=== PATIENT | male | born 1965 | race African-American/Black ===

== ENCOUNTER 2018-03-09 18:55 | Emergency (ER) | payer MEDICAID, OTHER ==
[~2018-03-09] VITALS: Ht 167.6 cm; Wt 59.0 kg
[~2018-03-09 18:55] MED LIST: ASPI-1152 PO; BENA20TA9 PO; BLOO-367 VI; CARV3.12 PO; INSU100V28 SQ; INSU100V7 SQ; SIMV20TA2 PO
--- NOTE | 2018-03-09 20:35 | NUR ---
PT STATES "MY BG WAS 600G/DL AND I TOOK 5 UNITS REG INSULIN AT 1900 AND RECHECKED IT WAS 300G/DL; BEEN SICK FOR 3 DAYS WITH FLU/VOMITING AND NOT EATING" PT ON MONITOR IN BED 5. WILL CONTINUE TO MONITOR.
[2018-03-09] MEDS ORDERED: IV NS 0.9% 1,000 ML BAG IV ONE ×2 (21:00→22:00)
--- NOTE | 2018-03-09 21:10 | NUR ---
TECH AT BEDSIDE FOR EKG
[2018-03-09 21:22] LABS: BASOPHILS # (AUTO) 0.1 /CMM (0.0-0.2); BASOPHILS % (AUTO) 0.5 % (0.0-2.0); EOSINOPHILS % (AUTO) 0.2 % (0.0-6.0); HEMATOCRIT 37 % (39-51); HEMOGLOBIN 12.7 g/dL (13.5-17.5); LYMPHOCYTES # (AUTO) 1.9 /CMM (0.8-4.8); LYMPHOCYTES % (AUTO) 17.9 % (20.0-44.0); MEAN CORPUSCULAR HGB CONC 34 g/dl (31.0-36.0); MEAN CORPUSCULAR VOLUME 90 fL (80-96); MONOCYTES % (AUTO) 9.8 % (2.0-12.0); NEUTROPHILS # (AUTO) 7.4 /CMM (1.8-8.9); NEUTROPHILS % (AUTO) 71.6 % (43.0-81.0); PLATELET COUNT (AUTO) 170 /CMM (150-450); RED BLOOD CELL COUNT(AUTO) 4.14 MIL/uL (4.5-6.0); WHITE BLOOD COUNT (AUTO) 10.3 K/uL (4.3-11.0)
[2018-03-09 21:30] LABS: CALCIUM, SERUM 8.4 mg/dL (8.5-10.1); CREATININE 1.9 mg/dL (0.6-1.3)
[2018-03-09 21:36] LABS: ALBUMIN 3.4 g/dL (3.4-5.0); BILIRUBIN,DIRECT 0.1 mg/dL (0.0-0.2); BILIRUBIN,TOTAL 0.5 mg/dL (0.2-1.0); TOTAL PROTEIN, SERUM 7.4 g/dL (6.4-8.2)
--- NOTE | 2018-03-09 21:45 | NUR ---
URINE COLLECTED AND SENT TO LAB
[2018-03-09 21:57] LABS: APPEARANCE,URINE SL CLOUDY (CLEAR); BILIRUBIN,URINE NEGATIVE (NEGATIVE); BLOOD, URINE 2+ Ery/uL (NEGATIVE); COLOR,URINE YELLOW (YELLOW); KETONES,URINE TRACE (NEGATIVE); LEUKOCYTE ESTERASE ,URINE NEGATIVE (NEGATIVE); NITRITE, URINE NEGATIVE (NEGATIVE); PROTEIN,URINE 2+ mg/dl (NEGATIVE); UGLUCOSE 3+ mg/dL (NEGATIVE); UROBILINOGEN,URINE 0.2 EU/dL (0.2)
[2018-03-09] MEDS ORDERED: POTASSIUM CHLORIDE 20 MEQ TAB.PRT.SR PO ONE ×2 (22:00→22:08)
[2018-03-09] MEDS ORDERED: POTASSIUM CL. PREMIX PERIPHER. 50 ML ONE ×2 (22:08→23:19)
[2018-03-09 22:12] LABS: BACTERIA,URINE Few /HPF (None Seen); SQUAMOUS EPITHELIAL CELL,UR Rare /HPF (None Seen)
[2018-03-09] MEDS: POTASSIUM CL. PREMIX PERIPHER. 50 ML IV SCH ×2 (22:42→23:42)
--- NOTE | 2018-03-10 00:20 | NUR ---
Patient is resting comfortably in bed with FAMILY AND DOG AT BEDSIDE. VSS. WILL CONTINUE TO MONITOR.
[2018-03-10 00:31] LABS: CREATININE 1.7 mg/dL (0.6-1.3); POTASSIUM 3.4 mmol/L (3.5-5.1)
[2018-03-10] MEDS: POTASSIUM CL. PREMIX PERIPHER. 50 ML IV SCH (00:43)
--- NOTE | 2018-03-10 01:17 | NUR ---
IV removed. Catheter intact and site benign. Pressure and 4x4 applied to site. No bleeding noted.Patient discharged to home in stable condition. Written and verbal after care instructions given. Patient verbalizes understanding of instruction.
[2018-03-10 01:18] VITALS: BP 122/84
== END 2018-03-10 01:19 | disposition home or self-care (01) ==
LOC: ER 19:01
DX: E11.65 Type 2 diabetes mellitus with hyperglycemia (principal); E87.6 Hypokalemia; I10 Essential (primary) hypertension; F17.200 Nicotine dependence, unspecified, uncomplicated; F12.10 Cannabis abuse, uncomplicated; Z60.2 Problems related to living alone; Z79.82 Long term (current) use of aspirin; Z95.1 Presence of aortocoronary bypass graft; Z98.890 Other specified postprocedural states; Z79.4 Long term (current) use of insulin
CPT/HCPCS: 36415 ×2; 80048 ×2; 80076; 81001; 82010; 82962; 85025; 87077; 87086; 87186; 93005; 96361; 96365; 96367; 99284; A4606; J3480 ×2; J7030 ×2; Z7610; 81000-TC

== ENCOUNTER 2019-05-14 17:50 | Emergency (ER) | payer MEDICAID, OTHER ==
[~2019-05-14] VITALS: Ht 170.2 cm; Wt 77.1 kg
--- NOTE | 2019-05-14 17:50 | NUR ---
called to triage, no answer
[2019-05-14 18:30] VITALS: BP 154/98
== END 2019-05-14 19:23 | disposition home or self-care (01) ==
LOC: ER 17:51
DX: S46.092A Other injury of muscle(s) and tendon(s) of the rotator cuff of left shoulder, initial encounter (principal); I10 Essential (primary) hypertension; E11.9 Type 2 diabetes mellitus without complications; Z98.890 Other specified postprocedural states; Z60.2 Problems related to living alone; Z79.82 Long term (current) use of aspirin; Z79.899 Other long term (current) drug therapy; Z79.4 Long term (current) use of insulin; X58.XXXA Exposure to other specified factors, initial encounter; Y93.89 Activity, other specified; Y92.89 Other specified places as the place of occurrence of the external cause; Y99.8 Other external cause status

== ENCOUNTER 2020-12-28 03:52 | Emergency (ER) | payer OTHER ==
[~2020-12-28 03:52] MED LIST changes: -ASPI-1152 PO; +ASPI-1420 PO
== END 2020-12-28 05:01 | disposition home or self-care (01) ==
LOC: ER 03:59
DX: Z53.21 Procedure and treatment not carried out due to patient leaving prior to being seen by health care provider (principal)